=== PATIENT | female | born 1950 | race Two or more races ===

== ENCOUNTER 2020-07-19 14:09 | Outpatient (CLI) | payer OTHER | END 2020-07-19 14:24 | disposition home or self-care (01) | LOC: MRI 14:09 | DX: M25.511 Pain in right shoulder (principal) | CPT/HCPCS: 73218 ==

== ENCOUNTER 2021-02-04 11:32 | Outpatient (CLI) | payer OTHER | END 2021-02-04 11:38 | disposition home or self-care (01) | LOC: RAD 11:32 | PROVIDERS: ATTEND Physical Medicine & Rehabilitation | DX: M75.51 Bursitis of right shoulder (principal); I11.9 Hypertensive heart disease without heart failure; M25.512 Pain in left shoulder; M25.511 Pain in right shoulder | CPT/HCPCS: 73221 ==

== ENCOUNTER 2022-01-17 11:08 | Outpatient (CLI) | payer OTHER | END 2022-01-17 11:09 | disposition home or self-care (01) | LOC: MRI 11:08 | PROVIDERS: ATTEND Physical Medicine & Rehabilitation | DX: M54.50 Low back pain, unspecified (principal); M54.16 Radiculopathy, lumbar region; M84.38XD Stress fracture, other site, subsequent encounter for fracture with routine healing | CPT/HCPCS: 72148 ==